=== PATIENT | female | born 1960 | race Caucasian/White ===

== ENCOUNTER 2016-10-05 16:24 | Inpatient (IN) | payer OTHER ==
[~2016-10-05] VITALS: Ht 177.8 cm; Wt 60.6 kg
[~2016-10-05 16:24] MED LIST: ATOR20TA PO; CYMB60CA PO; GLUCTAB PO; LISI-360 PO; NEUR100C PO; NOVOLOG PUMP ID; OMEG1CAP53 PO
[2016-10-05 17:58] VITALS: BP 147/80; PULSE 69; RESP 18; TEMP 98.1; O2SAT 97
[2016-10-05] MEDS ORDERED: MAGNESIUM HYDROXIDE SUSP 30 ML CUP PO PRN (18:30)
[2016-10-05] MEDS ORDERED: ALUMINUM/MAGNESIUM/SIMETH 30 ML CUP PO PRN (18:30)
[2016-10-05] MEDS ORDERED: LORazepam 1 MG TAB PO PRN (18:30)
[2016-10-05] MEDS ORDERED: ACETAMINOPHEN 325 MG TAB PO PRN (18:30)
[2016-10-05] MEDS ORDERED: LORazepam 2 MG/ML VIAL IM PRN (18:30)
[2016-10-05] MEDS: NICOTINE 21 MG/24 HR PATCH T-DERMAL SCH (18:45)
[2016-10-05] MEDS: REMOVE OLD NICOTINE PATCH T-DERMAL SCH (21:00)
[2016-10-06 05:21] VITALS: BP 151/74; PULSE 68; RESP 16; TEMP 97.8; O2SAT 98
[2016-10-06] MEDS: NICOTINE 21 MG/24 HR PATCH T-DERMAL SCH (09:12)
[2016-10-06 18:07] VITALS: BP 130/74; PULSE 87; RESP 18; TEMP 98.4; O2SAT 99
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
[2016-10-06] MEDS: REMOVE OLD NICOTINE PATCH T-DERMAL SCH (20:57)
[2016-10-07 05:02] VITALS: BP 131/69; PULSE 63; RESP 18; TEMP 97; O2SAT 97
[2016-10-07 08:20] LABS: AUTOMATED NEUTROPHIL # 1.7 TH/MM3 (1.8-7.7); BASOPHIL % 1.2 % (0.0-2.0); EOSINOPHIL # 0.2 TH/MM3 (0-0.4); EOSINOPHIL % 5.3 % (0.0-4.0); HEMATOCRIT 33.9 % (35.0-46.0); HEMO FLAGS DIFF FINAL; LYMPH % 37.1 % (9.0-44.0); LYMPHOCYTE # 1.3 TH/MM3 (1.0-4.8); MEAN CELL VOLUME 79.4 FL (80.0-100.0); MEAN CORPUSCULAR HEMOGLOBIN 25.5 PG (27.0-34.0); MEAN CORPUSCULAR HGB CONC 32.1 % (32.0-36.0); MONO % 8.3 % (0.0-8.0); NEUT % 48.1 % (16.0-70.0); PLATELET COUNT 179 TH/MM3 (150-450); RED BLOOD COUNT 4.28 MIL/MM3 (4.00-5.30); RED CELL DISTRIBUTION WIDTH 13.1 % (11.6-17.2); WHITE BLOOD COUNT 3.6 TH/MM3 (4.0-11.0)
[2016-10-07] MEDS: NICOTINE 21 MG/24 HR PATCH T-DERMAL SCH (09:00)
[2016-10-07 09:02] LABS: ALKALINE PHOSPHATASE 161 U/L (45-117); ALT (GPT) 24 U/L (10-53); ANION GAP 7 MEQ/L (5-15); AST (GOT) 17 U/L (15-37); BICARBONATE 31.7 MEQ/L (21.0-32.0); BLOOD UREA NITROGEN 15 MG/DL (7-18); CHLORIDE 105 MEQ/L (98-107); FREE T4 1.28 NG/DL (0.76-1.46); GLOMERULAR FILTRATION RATE 73 ML/MIN (>89); HDL CHOLESTEROL 44.3 MG/DL (40.0-60.0); LDL CHOLESTEROL 89 MG/DL (0-99); POTASSIUM 4.1 MEQ/L (3.5-5.1); SODIUM (NA) 144 MEQ/L (136-145); TOTAL BILIRUBIN ADULT 0.5 MG/DL (0.2-1.0)
[2016-10-07] MEDS: metFORMIN HCL 500 MG TAB PO SCH ×2 (09:07→17:43)
[2016-10-07 13:49] LABS: HEMOGLOBIN A1a 1.1 %; HEMOGLOBIN Ao 83.4 %; HEMOGLOBIN P3 4.1 %
--- NOTE | 2016-10-07 15:48 | EKG ---
Date Performed: 10/06/2016 Time Performed: 20:37:16 PTAGE: 56 years EKG: Sinus rhythm NORMAL ECG NO PREVIOUS TRACING DOCTOR: Daria Krishnamurthy Interpretating Date/Time 10/07/2016 15:46:02
[2016-10-07] MEDS ORDERED: DULoxetine HCl DR 30 MG CAP PO ONE (16:15)
[2016-10-07 16:35] VITALS: BP 119/70; PULSE 72; RESP 18; TEMP 97.4; O2SAT 100
[2016-10-07] MEDS: REMOVE OLD NICOTINE PATCH T-DERMAL SCH (20:46)
[2016-10-08 05:57] VITALS: BP 162/79; PULSE 70; RESP 16; TEMP 97.9; O2SAT 95
[2016-10-08] MEDS: NICOTINE 21 MG/24 HR PATCH T-DERMAL SCH (09:00)
[2016-10-08] MEDS: metFORMIN HCL 500 MG TAB PO SCH ×2 (09:00→17:12)
[2016-10-08] MEDS: DULoxetine HCl DR 30 MG CAP PO SCH (13:20)
[2016-10-08 20:45] VITALS: BP 149/67; PULSE 65; RESP 16; TEMP 98; O2SAT 96
[2016-10-08] MEDS: REMOVE OLD NICOTINE PATCH T-DERMAL SCH (21:00)
[2016-10-09 05:59] VITALS: BP 144/79; PULSE 67; RESP 18; TEMP 96.8; O2SAT 99
[2016-10-09] MEDS: NICOTINE 21 MG/24 HR PATCH T-DERMAL SCH (08:51)
[2016-10-09] MEDS: DULoxetine HCl DR 30 MG CAP PO SCH (08:51)
[2016-10-09] MEDS: metFORMIN HCL 500 MG TAB PO SCH ×2 (08:51→17:26)
[2016-10-09] MEDS: REMOVE OLD NICOTINE PATCH T-DERMAL SCH (21:00)
[2016-10-09 21:59] VITALS: BP 144/81; PULSE 69; RESP 18; TEMP 98.6; O2SAT 100
[2016-10-10 05:42] VITALS: BP 135/64; PULSE 83; RESP 16; TEMP 98; O2SAT 98
[2016-10-10] MEDS: DULoxetine HCl DR 30 MG CAP PO SCH (09:09)
[2016-10-10] MEDS: metFORMIN HCL 500 MG TAB PO SCH ×2 (09:09→18:28)
[2016-10-10 18:03] VITALS: BP 124/75; PULSE 70; RESP 17; TEMP 98.3; O2SAT 100
[2016-10-10] MEDS: REMOVE OLD NICOTINE PATCH T-DERMAL SCH (21:00)
[2016-10-11 05:10] VITALS: BP 112/64; PULSE 62; RESP 18; TEMP 97.6; O2SAT 99
[2016-10-11] MEDS: DULoxetine HCl DR 30 MG CAP PO SCH (09:49)
[2016-10-11] MEDS: metFORMIN HCL 500 MG TAB PO SCH ×2 (09:50→18:45)
--- NOTE | 2016-10-11 09:59 | PD.CONS ---
HPI Service [facility] Hospitalists Consult Requested By Dr. Morrell Reason for Consult Medical Management Diabetes Primary Care Physician Unknown Diagnoses: History of Present Illness Patient is a 56-year-old female with history of diabetes, hereditary hemachromatosis, and hypertension. Patient was admitted to [facility] due to overdose with Ativan and hydrocodone. Patient developed respiratory failure and required mechanical ventilation. Patient was placed under act. Once medically stabilized, patient was transferred to psychiatric unit of [facility] for further evaluation and treatment under the care of psychiatry, . The medical team is now consulted to assist with patient's chronic medical issues. Review of Systems Constitutional: DENIES: Diaphoretic episodes, Fatigue, Fever, Weight gain, Weight loss, Chills, Dizziness, Change in appetite, Night Sweats Endocrine: DENIES: Heat/cold intolerance, Polydipsia, Polyuria, Polyphagia Eyes: DENIES: Blurred vision, Diplopia, Eye inflammation, Eye pain, Vision loss , Photosensitivity, Double Vision Ears, nose, mouth, throat: DENIES: Tinnitus, Hearing loss, Vertigo, Nasal discharge, Oral lesions, Throat pain, Hoarseness, Ear Pain, Running Nose, Epistaxis, Sinus Pain, Toothache, Odynophagia Respiratory: DENIES: Apneas, Cough, Snoring, Wheezing, Hemoptysis, Sputum production, Shortness of breath Cardiovascular: DENIES: Chest pain, Palpitations, Syncope, Dyspnea on Exertion , PND, Lower Extremity Edema, Orthopnea, Claudication Gastrointestinal: DENIES: Abdominal pain, Black stools, Bloody stools, BRB per rectum, Constipation, Diarrhea, GERD, Nausea, Reflux, Vomiting, Difficulty Swallowing, Anorexia Genitourinary: DENIES: Urinary frequency, Urinary incontinence, Urgency, Hematuria, Dysuria, Nocturia Musculoskeletal: DENIES: Joint pain, Muscle aches, Stiffness, Joint Swelling, Back pain, Neck pain Integumentary: DENIES: Abnormal pigmentation, Pruritus, Rash, Nail changes, Breast masses, Breast skin changes, Nipple discharge Hematologic/lymphatic: DENIES: Bruising, Lymphadenopathy Immunologic/allergic: DENIES: Eczema, Urticaria Neurologic: DENIES: Abnormal gait, Headache, Localized weakness, Paresthesias, Seizures, Speech Problems, Tremor, Poor Balance Psychiatric: COMPLAINS OF: Mood changes, Depression, Agitation, Suicidal Ideation, DENIES: Anxiety, Confusion, Hallucinations, Homicidal Ideation, Delusions, History of Bipolar, History of Schizophrenia Past Family Social History Past Medical History 1) hypertension 2) diabetes, type II, on insulin pump (previous) - Complicated by severe diabetic peripheral neuropathy 3) Charcot's foot, left 4) hemachromatosis. 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 Raji Briceno. Last appointment August 31, 2015 - last phlebotomy over 6 months ago 5) hyperlipidemia 6) nonalcoholic steatohepatitis 7) obesity, status post gastric bypass with loss of 100 pounds 8) peripheral neuropathy 9) right peroneal nerve lesion 10) right sciatic lesion 11) depression 12) migraines 13) urethral surgery for incontinence, ?urethral sling Past Surgical History 1) EGD and colonoscopy 2) bariatric surgerygastric bypass in 2013 - Bran-En-Y performed by Dr. Mancera - Treated by phlebotomy 3) laparoscopic cholecystectomy 2009 4) carpal tunnel release in 2004 5) section 1994 6) tonsillectomy 1965 7) decompression of median nerve at carpal tunnel 8) tonsillectomy and adenoidectomy 9) placement of insulin pump Reported Medications Reported Meds & Active Scripts Active Reported Metformin HCl ER (Metformin HCl) 500 Mg Tab 850 Mg PO BIDPC Lovaza (Fish Oil) 1 Gm Cap 4 Gm PO DAILY DO NOT TAKE UNTIL RESTARTED BY DR CHILDERS Neurontin (Gabapentin) 100 Mg Cap 200 Mg PO DAILY DO NOT TAKE UNTIL RESTARTED BY DR CHILDERS Atorvastatin 20 mg (Atorvastatin Calcium) 20 Mg Tab 1 Tab PO HS DO NOT TAKE UNTIL RESTARTED BY DR CHILDERS Lisinopril 10 mg (Lisinopril) 10 Mg Tab 10 Mg PO DAILY [Novolog Pump] ID DIRECTED STATES 4.5 UNITS CONTINUOUS FROM NOON TO MIDNIGHT. 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 Prior to that smoked 1 pack per day for 14 years - etoh: 1-2 beers per day, but more beers recently - denies illicit street drugs Physical Exam Vital Signs Vital Signs Date Time Temp Pulse Resp B/P Pulse Ox O2 Delivery O2 Flow Rate FiO2 10/11/16 05:10 97.6 62 18 112/64 99 10/10/16 18:03 98.3 70 17 124/75 100 Physical Exam GENERAL: This is a well-nourished, well-developed patient, in no apparent distress. SKIN: No rashes, ecchymoses or lesions. Cool and dry. HEAD: Atraumatic. Normocephalic. No temporal or scalp tenderness. EYES: Pupils equal round and reactive. Extraocular motions intact. No scleral icterus. No injection or drainage. ENT: Nose without bleeding, purulent drainage or septal hematoma. Throat without erythema, tonsillar hypertrophy or exudate. Uvula midline. Airway patent. NECK: Trachea midline. No JVD or lymphadenopathy. Supple, nontender, no meningeal signs. CARDIOVASCULAR: Regular rate and rhythm without murmurs, gallops, or rubs. RESPIRATORY: Clear to auscultation. Breath sounds equal bilaterally. No wheezes , rales, or rhonchi. GASTROINTESTINAL: Abdomen soft, non-tender, nondistended. No hepato-splenomegaly , or palpable masses. No guarding. MUSCULOSKELETAL: Extremities without clubbing, cyanosis, or edema. No joint tenderness, effusion, or edema noted. No calf tenderness. Negative Homans sign bilaterally. NEUROLOGICAL: Awake and alert. Cranial nerves II through XII intact. Motor and sensory grossly within normal limits. Five out of 5 muscle strength in all muscle groups. Normal speech. Result Diagram: 10/07/16 0751 10/07/16 0751 Assessment and Plan Problem List: (1) Overdose Status: Acute Plan: - Overdose with hydrocodone and Ativan - Patient developed respiratory failure and required mechanical ventilation at [facility] - Patient transferred to the psychiatry department, service of Dr[facility] Morrell [facility] - Management per psychiatry, Dr. Morrell (2) Depression Status: Acute Plan: - see above (3) HTN (hypertension) Status: Chronic Plan: - Resume outpatient lisinopril 10 mg by mouth daily - Catapres prn - observe (4) DM2 (diabetes mellitus, type 2) Status: Chronic Plan: - Patient is managed by Endocrinology, outpt - metformin 500mg BID (1000 mg by mouth twice a day outpatient) - Insulin pump? Will discuss with patient (5) Hemochromatosis Status: Chronic Plan: - Pt follows with Dr. Raji Briceno, last appointment 08/31/15 - Patient is treated by phlebotomy - per pt last phlebotomy was over 6 months ago. Problem Qualifiers (1) Overdose: (2) HTN (hypertension): Qualified Code: I10 - Essential hypertension (3) DM2 (diabetes mellitus, type 2): (4) Hemochromatosis: Qualified Code: E83.110 - Hereditary hemochromatosis Andrea Jewell DO October 11, 2016 09:59
[2016-10-11] MEDS ORDERED: cloNIDine HCL 0.2 MG TAB PO PRN (10:00)
[2016-10-11] MEDS: LISINOPRIL 10 MG TAB PO SCH (13:10)
[2016-10-11 18:14] VITALS: BP 103/76; PULSE 105; RESP 18; TEMP 98.1; O2SAT 99
[2016-10-11] MEDS: REMOVE OLD NICOTINE PATCH T-DERMAL SCH (20:55)
[2016-10-12 05:29] VITALS: BP 103/55; PULSE 60; RESP 16; TEMP 97.1; O2SAT 99
[2016-10-12 08:14] LABS: AUTOMATED NEUTROPHIL # 1.4 TH/MM3 (1.8-7.7); BASOPHIL # 0.1 TH/MM3 (0-0.2); BASOPHIL % 1.8 % (0.0-2.0); EOSINOPHIL # 0.1 TH/MM3 (0-0.4); EOSINOPHIL % 2.7 % (0.0-4.0); HEMATOCRIT 37.3 % (35.0-46.0); HEMO FLAGS DIFF FINAL; LYMPH % 49.7 % (9.0-44.0); LYMPHOCYTE # 1.8 TH/MM3 (1.0-4.8); MEAN CORPUSCULAR HEMOGLOBIN 25.6 PG (27.0-34.0); MEAN CORPUSCULAR HGB CONC 32.4 % (32.0-36.0); MONO % 7.6 % (0.0-8.0); NEUT % 38.2 % (16.0-70.0); PLATELET COUNT 265 TH/MM3 (150-450); RED BLOOD COUNT 4.72 MIL/MM3 (4.00-5.30); RED CELL DISTRIBUTION WIDTH 13.3 % (11.6-17.2); WHITE BLOOD COUNT 3.7 TH/MM3 (4.0-11.0)
[2016-10-12] MEDS: metFORMIN HCL 500 MG TAB PO SCH (08:49)
[2016-10-12] MEDS ORDERED: DULoxetine HCl DR 60 MG CAP PO SCH (09:00)
[2016-10-12] MEDS: LISINOPRIL 10 MG TAB PO SCH (09:00)
[2016-10-12] MEDS ORDERED: LISI10TA3 PO (13:33)
[2016-10-12] MEDS ORDERED: METF500 PO (13:33)
[2016-10-12] MEDS ORDERED: DULO1CAP3 PO (13:33)
--- NOTE | 2016-10-12 16:05 | MD ---
cc: EMILEE ARGUELLO M.D., JAMES R. D.O. KHER, HARISH M.D. ADMISSION DATE: 10/05/2016 DISCHARGE DATE: 10/12/2016 ADMISSION DIAGNOSIS [place] I: Major depressive disorder moderate, recurrent. Status post overdose on Ativan and oxycodone. [place] II: No diagnosis. [place] III: Diabetes mellitus, normal status post bariatric surgery, cholecystectomy, right carpal tunnel release, hemochromatosis, hypertension. [place] IV: Severity of psychosocial stressors moderate i.e. marital discord, conflictual relationship with adopted son, chronic medical / psychiatric issues. [place] V: Current GAF score 40 DISCHARGE DIAGNOSIS [place] I: Major depressive disorder moderate, recurrent. Status post overdose on Ativan and oxycodone. [place] II: No diagnosis. [place] III: Diabetes mellitus, normal status post bariatric surgery, cholecystectomy, right carpal tunnel release, hemochromatosis, hypertension. [place] IV: Severity of psychosocial stressors moderate i.e. marital discord, conflictual relationship with adopted son, chronic medical / psychiatric issues. [place] V: Current GAF score 60. HISTORY OF PRESENT ILLNESS: This 56-year-old white female was initially admitted to [facility] under the ACT initiated by the police because of overdose on Ativan and Oxycodone. Once medically stabilized she was transferred to this unit. Initially under Dr. Berg's service, but later on transferred to my service as she was covered under the [facility] Care plan. Please refer to my initial evaluation for details. LABORATORY FINDINGS CBC with differential was done on 10/07 and 10/12 and was essentially unremarkable. CMP was also essentially unremarkable. T4, TSH were normal. RADIOLOGIC FINDINGS: EKG was normal. HOSPITAL COURSE When initially evaluated Ms. Lakhani was very depressed looking, tearful, anxious. She acknowledged her suicide attempt was precipitated by an argument with her and she acknowledged this was an impulsive act out of anger. She also and indicated that she has had episodes of depression in the past as well and had not been very compliant with the medications. She and her have been involved in individual as well as marital therapy. She previously been on Cymbalta to which she had responded well and as such was restarted on it. The patient is an individual psychotherapy primarily addressed issues related to marital discord and the other psychosocial stressors i.e. problems with adopted son. She had adopted this son when he was 6-year-old. Apparently comes from very dysfunctional family and she had adopted him in an attempt to rescue him. However lately has been abusing drugs. She did gain insight into these issues and developed better coping skills to deal with the stressors in her life. She responded well to the antidepressant. Towards the end of this admission her affect brightened up and her sleep and appetite also improved, she became more interactive with staff as well as with peers. It should be mentioned that throughout this hospital stay, especially initially she was very focused on discharge. However when explained the need for continued hospital stay she accepted it. We had a treatment team meeting yesterday attended by her and her Dr. Lakhani a local fitter hand. We reviewed her progress on identified issues during this hospital stay and seemed quite pleased with the progress she had made. She supported the patient's request for discharge today as they had to attend the daughter's graduation democrat. The need for outpatient followup was emphasized to both of them and they were very receptive. As such the treatment team felt she has received optimum benefit out of this admission and could be discharged today. At the time of discharge she is displaying positive attitude is denying any suicidal or homicidal ideations. She is not exhibiting any acute psychotic symptoms. She was seen in medical consult by Dr. Jewell and antidepressant was added. She is recommended to continue outpatient follow up with her primary care physician. MEDICATIONS discharge medications are; 1. Cymbalta 60 mg one p.o. daily #10 one refill. 2. Lisinopril 10 mg p.o. daily #10. 3. Glucophage 500 mg p.o. b.i.d. p.c. #20. 4. She is to continue individual psychotherapy with Shannan willoughby and psychiatric followup with Dr. Arguello. MD JEAN-PAUL Taylor/joss /1:37 PM /3:39 PM
== END 2016-10-12 13:50 | disposition home or self-care (01) | DRG 885 ==
LOC: H260 17:51
PROVIDERS: ADMIT Psychiatry & Neurology Psychiatry; ATTEND Psychiatry & Neurology Psychiatry
DX: F33.1 Major depressive disorder, recurrent, moderate (principal); E11.42 Type 2 diabetes mellitus with diabetic polyneuropathy; K75.81 Nonalcoholic steatohepatitis (NASH); I10 Essential (primary) hypertension; E78.5 Hyperlipidemia, unspecified; E83.110 Hereditary hemochromatosis; G43.909 Migraine, unspecified, not intractable, without status migrainosus; E11.610 Type 2 diabetes mellitus with diabetic neuropathic arthropathy; Z79.84 Long term (current) use of oral hypoglycemic drugs; Z98.84 Bariatric surgery status; Z87.891 Personal history of nicotine dependence
CPT/HCPCS: 80053; 80061; 82948; 83036; 84439; 84443; 85025; 93005